=== PATIENT | male | born 1950 | race Caucasian/White ===

== ENCOUNTER 2019-07-29 05:59 | Inpatient (IN) | payer OTHER ==
[~2019-07-29] VITALS: Ht 182.9 cm; Wt 108.0 kg
[~2019-07-29 05:59] MED LIST: ALBU8.5H8 INH; ATOR20TA37 PO; BUDE10.2 INH; IBUP-1223 PO; LEVO175T5 PO; LEVO200T5 PO
[2019-07-29] MEDS ORDERED: VANCOMYCIN PMX 1GM/200ML 200 ML IV STA (06:10)
[2019-07-29 06:45] VITALS: BP 167/96
[2019-07-29] MEDS ORDERED: LACTATED RINGERS 1,000 ML IV SCH (07:17)
[2019-07-29] MEDS ORDERED: DIPHENHYDRAMINE 50 MG CAPSULE PO PRN (08:00)
[2019-07-29] MEDS ORDERED: PROMETHAZINE 25 MG/ML, 1ML IM PRN (08:00)
[2019-07-29] MEDS ORDERED: DEXAMETHASONE 4 MG/ML, 1ML IVPush PRN (08:00)
[2019-07-29] MEDS ORDERED: ACETAMINOPHEN 325 MG TABLET PO PRN ×2 (08:00→09:30)
[2019-07-29] MEDS ORDERED: BISACODYL 10 MG SUPP PR PRN (08:00)
[2019-07-29] MEDS ORDERED: OXYcodone IR 5MG TABLET PO PRN ×2 (08:00)
[2019-07-29] MEDS ORDERED: LABETALOL 5MG/ML, 20ML IVPush PRN (08:00)
[2019-07-29] MEDS ORDERED: SENNA/DOCUSATE TABLET PO PRN (08:00)
[2019-07-29] MEDS ORDERED: PHARMACY MAY ADJ FOR RENAL FX MC PRN (08:00)
[2019-07-29] MEDS ORDERED: ONDANSETRON 2MG/ML, 2ML IVPush PRN (08:00)
[2019-07-29] MEDS ORDERED: morphine SULFATE 10 MG/ML, 1ML IVPush PRN (08:00)
[2019-07-29] MEDS ORDERED: MAGNESIUM HYDROXIDE 8%, 30ML UDC PO PRN (08:00)
[2019-07-29] MEDS ORDERED: LORazepam 1MG TABLET PO PRN (08:00)
[2019-07-29] MEDS ORDERED: KETOROLAC 30 MG/1 ML IM PRN (08:00)
[2019-07-29] MEDS ORDERED: DIAZEPAM 5 MG TABLET PO PRN (08:00)
[2019-07-29] MEDS: D5%-0.9% NACL+KCL 20MEQ 1,000 ML IV SCH ×2 (08:00→20:15)
[2019-07-29] MEDS ORDERED: DIPHENHYDRAMINE 50 MG/ML, 1ML IVPush PRN (08:00)
[2019-07-29] MEDS: CEFAZOLIN PMX 1GM/50ML 50 ML IVPB SCH ×3 (08:00→20:15)
[2019-07-29] MEDS ORDERED: BUPIVACAINE/PF 0.5% ONE (08:21)
[2019-07-29] MEDS ORDERED: THROMBIN 5,000 UNIT VIAL TP ONE (08:21)
[2019-07-29] MEDS ORDERED: VANCOMYCIN 1,000 MG ONE ×2 (08:21→10:29)
[2019-07-29] MEDS ORDERED: BACITRACIN 50,000 UNIT ONE (08:22)
[2019-07-29] MEDS ORDERED: EPINEPHRINE 1 MG/ML, 1ML ONE (08:22)
[2019-07-29] MEDS ORDERED: SCOPOLAMINE PATCH, 1.5MG PATCH.TD72 TD ONE (08:25)
[2019-07-29] MEDS ORDERED: FENTANYL PF 100 MCG/2ML ONE ×3 (08:31→15:06)
[2019-07-29] MEDS ORDERED: MIDAZOLAM 1 MG/ML, 2ML ONE (08:31)
[2019-07-29] MEDS ORDERED: FENTANYL PF 250 MCG/5ML ONE ×2 (08:32→12:14)
[2019-07-29] MEDS ORDERED: PROPOFOL 200 ML ONE (08:32)
[2019-07-29] MEDS ORDERED: LIDOCAINE-MPF 2% ,5ML ONE ×3 (08:32)
[2019-07-29] MEDS ORDERED: KETAMINE 10 MG/ML, 20ML ONE (08:35)
[2019-07-29] MEDS ORDERED: ACETAMINOPHEN 500 MG TABLET PO PRN (08:41)
[2019-07-29] MEDS ORDERED: EPHEDRINE 50 MG/ML, 1ML ONE (08:44)
[2019-07-29] MEDS ORDERED: TRANEXAMIC ACID 100 MG/ML, 10ML ONE (09:23)
[2019-07-29] MEDS ORDERED: ONDANSETRON 2MG/ML, 2ML IV PRN (09:30)
[2019-07-29] MEDS ORDERED: OXYcodone 5 MG/5 ML ORAL.SOL UDC PO PRN (09:30)
[2019-07-29] MEDS ORDERED: DIAZEPAM 5 MG/ML, 2ML IVPush PRN (09:30)
[2019-07-29] MEDS ORDERED: PROMETHAZINE 25 MG SUPP PR PRN (09:30)
[2019-07-29] MEDS ORDERED: ONDANSETRON ODT 8 MG PO PRN (09:30)
[2019-07-29] MEDS ORDERED: MEPERIDINE/PF 25MG/ML,1ML IVPush PRN (09:30)
[2019-07-29] MEDS ORDERED: HYDROmorphone 2 MG/ML, 1ML IVPush PRN (09:30)
[2019-07-29] MEDS ORDERED: PROMETHAZINE 25 MG/ML, 1ML IV PRN (09:30)
[2019-07-29] MEDS ORDERED: NEOSTIGMINE 1 MG/ML, 10ML ONE (12:14)
[2019-07-29] MEDS ORDERED: CEFAZOLIN 1,000 MG ONE (12:14)
[2019-07-29] MEDS ORDERED: GLYCOPYRROLATE 0.2MG/1ML, 5ML ONE (12:14)
[2019-07-29] MEDS ORDERED: SUCCINYLCHOLINE 20 MG/ML, 10ML ONE (12:14)
[2019-07-29] MEDS ORDERED: ONDANSETRON 2MG/ML, 2ML ONE (12:14)
[2019-07-29] MEDS ORDERED: PROPOFOL 10 MG/ML, 20ML ONE (12:14)
[2019-07-29] MEDS ORDERED: DEXAMETHASONE 4 MG/ML, 1ML ONE (12:14)
[2019-07-29] MEDS ORDERED: ROCURONIUM 10MG/ML,5ML ONE (12:14)
[2019-07-29] MEDS ORDERED: METHOCARBAMOL 1,000 MG in DEXTROSE 5% 100 ML IV SCH (14:00)
[2019-07-29] MEDS ORDERED: OXYcodone 5 MG/5 ML ORAL.SOL UDC ONE (15:07)
[2019-07-29] MEDS: FENTANYL PF 100 MCG/2ML IV PRN ×2 (15:08→15:29)
[2019-07-29] MEDS ORDERED: LABETALOL 5MG/ML, 20ML ONE (16:06)
[2019-07-29 17:32] VITALS: BP 121/85
[2019-07-29 20:10] VITALS: BP 147/81
[2019-07-29] MEDS ORDERED: ALBUTEROL SULFATE 2.5MG/0.5ML NPPB PRN ×3 (20:30→20:31)
[2019-07-29] MEDS: BUDESONIDE 0.5 MG/2 ML INHA INH SCH (21:00)
[2019-07-29] MEDS ORDERED: ATORVASTATIN 20 MG TABLET PO SCH (21:00)
[2019-07-29] MEDS: ALBUTEROL SULFATE 2.5 MG/3 ML NPPB SCH (21:00)
[2019-07-29] MEDS ORDERED: ZOLPIDEM 5MG TABLET PO PRN (21:00)
[2019-07-29] MEDS: METHOCARBAMOL 1,000 MG in DEXTROSE 5% 100 ML IV SCH (22:06)
[2019-07-30 00:37] VITALS: BP 123/75
[2019-07-30] MEDS: ALBUTEROL SULFATE 2.5 MG/3 ML NPPB SCH ×2 (01:21→08:18)
[2019-07-30] MEDS: CEFAZOLIN PMX 1GM/50ML 50 ML IVPB SCH (03:52)
[2019-07-30] MEDS ORDERED: LEVOTHYROXINE 100 MCG TABLET PO SCH (06:00)
[2019-07-30] MEDS: METHOCARBAMOL 1,000 MG in DEXTROSE 5% 100 ML IV SCH (06:05)
[2019-07-30 06:49] LABS: BASOPHILS # (AUTO) 0.01 x10^3/uL (0-0.1); BASOPHILS % (AUTO) 0 % (0-1); EOSINOPHILS # (AUTO) 0.02 x10^3/uL (0-0.4); EOSINOPHILS % (AUTO) 0 % (1-7); LYMPHOCYTES # (AUTO) 1.42 x10^3/uL (1-3.4); LYMPHOCYTES % (AUTO) 9 % (22-44); MD NO; MEAN CORPUSCULAR HEMOGLOBIN 32.1 pg (27.5-34.5); MEAN CORPUSCULAR HGB CONC 33.1 g/dL (33.2-36.2); MEAN CORPUSCULAR VOLUME 96.9 fL (81-97); MEAN PLATELET VOLUME 8.5 fL (7.4-10.4); MONOCYTES # (AUTO) 0.74 x10^3/uL (0.2-0.8); MONOCYTES % (AUTO) 5 % (2-9); NEUTROPHILS # (AUTO) 13.92 x10^3/uL (1.8-6.8); NEUTROPHILS % (AUTO) 86 % (42-75); PLATELET COUNT 233 x10^3/uL (130-400); RED BLOOD COUNT 4.03 x10^6/uL (4.38-5.82); RED CELL DISTRIBUTION WIDTH 14.3 % (9.4-14.8)
[2019-07-30] MEDS: D5%-0.9% NACL+KCL 20MEQ 1,000 ML IV SCH (07:33)
[2019-07-30] MEDS: BUDESONIDE 0.5 MG/2 ML INHA INH SCH (08:18)
[2019-07-30 14:14] VITALS: BP 166/74
[2019-07-31] MEDS ORDERED: METHOCARBAMOL 750 MG TABLET PO SCH (16:00)
== END 2019-07-30 14:27 | disposition home or self-care (01) | DRG 460 ==
LOC: ORIP 05:59 → 4NE 16:33 → DCLOUNGE 07-30 14:18
PROVIDERS: ADMIT Orthopaedic Surgery Orthopaedic Surgery of the Spine; ATTEND Orthopaedic Surgery Orthopaedic Surgery of the Spine
PROC: 0SP304Z Removal of Internal Fixation Device from Lumbosacral Joint, Open Approach (ICD-10-PCS; 2019-07-29)
PROC: 01NB0ZZ Release Lumbar Nerve, Open Approach (ICD-10-PCS; 2019-07-29)
PROC: 0QB20ZZ Excision of Right Pelvic Bone, Open Approach (ICD-10-PCS; 2019-07-29)
PROC: 4A11X4G Monitoring of Peripheral Nervous Electrical Activity, Intraoperative, External Approach (ICD-10-PCS; 2019-07-29)
PROC: 0SG00AJ Fusion of Lumbar Vertebral Joint with Interbody Fusion Device, Posterior Approach, Anterior Column, Open Approach (ICD-10-PCS; principal; 2019-07-29 08:00)
DX: M48.061 Spinal stenosis, lumbar region without neurogenic claudication (principal); J44.9 Chronic obstructive pulmonary disease, unspecified; I48.91 Unspecified atrial fibrillation; M43.16 Spondylolisthesis, lumbar region; M51.16 Intervertebral disc disorders with radiculopathy, lumbar region
CPT/HCPCS: 36415; 72100; J3490; J7613; J7626; S0020; 85025; 86850; 86900; 94640; 95938; 95941; C1713; G0378; J0171; J0690; J1100; J2250; J2270; J2405; J2704; J2710; J3010; J3370; C1760; C1762; C1763; C9362; J0330; J2800; J3480; J7120